=== PATIENT | male | born 1990 | race Caucasian/White ===

== ENCOUNTER 2021-07-13 08:24 | Emergency (ER) | payer MEDICAID ==
[~2021-07-13] VITALS: Ht 180.3 cm; Wt 77.0 kg
[~2021-07-13 08:24] MED LIST: AMOX-424 MT
[2021-07-13 08:40] VITALS: BP 114/79
== END 2021-07-13 09:15 | disposition left against medical advice (07) ==
LOC: ER 08:29
DX: R42 Dizziness and giddiness (principal); R51.9 Headache, unspecified
CPT/HCPCS: 93005; 99283